=== PATIENT | female | born 1975 | race Caucasian/White ===

== ENCOUNTER 2019-11-13 18:48 | Emergency (ER) | payer SELFPAY ==
[~2019-11-13] VITALS: Ht 157.5 cm; Wt 59.0 kg
[2019-11-13] MEDS ORDERED: ONDANSETRON ODT 4 MG TAB.RAPDIS ONE (19:34)
[2019-11-13] MEDS: ONDANSETRON ODT 4 MG TAB.RAPDIS PO ONE ×2 (19:38)
--- NOTE | 2019-11-13 20:10 | RAD ---
Examination: CT HEAD WO CONTRAST History: Reason: HIT HEAD YESTERDAY, DIZZINESS, headache / Spl. Instructions: / History: Comparison/Correlation: None Findings: Axial images of the head were obtained without contrast. The ventricles are normal size. Normal cohen-white matter differentiation. No intracranial hemorrhage, midline shift, or mass effect. The patient is mostly edentulous. No depressed fracture. Visualized paranasal sinuses and mastoid air cells are unremarkable. Impression: No suspicious process. Electronically signed by: All Frances MD (11/13/2019 8:07 PM) [facility]
--- NOTE | 2019-11-13 20:13 | PHYS DOC ---
Past History Past Medical History: No Pertinent History, Other Additional Past Medical Histor: INSOMNIA, POLYP IN UTERUS Past Surgical History: Tubal ligation, Other Additional Past Surgical Histo: CANALOPLASTY, ABLASION Alcohol Use: None Drug Use: None Adult General Chief Complaint Chief Complaint: NAUSEA/VOMITING/DIARRHEA HPI HPI Patient is a 44-year-old female who presents with dizziness. Onset was yesterday morning at 4 AM, patient was attempting to shrimp picker her cat in the middle of the night and hit her right anterior forehead on dresser. Ever since this, patient reports dull headache. Associated symptoms include nausea and dizziness whenever she changes head positions and changes body position. Nothing known makes better, body movements previously described make worse. Patient denies this is the worst headache of her life, no ripping or tearing sensations at this time. She is not on any blood thinners. She has no diagnosed history of BPPV, no recent URI, no fever, no history of CVA or other neurologic abnormalities. Ongoing symptomology today prompted her to visit our ER for evaluation Review of Systems Review of Systems Fourteen body systems of review of systems have been reviewed. See HPI for pertinent positives and negative responses, other jones all other systems are negative, non-pertinent or non-contributory Current Medications Current Medications Current Medications Medications (Trade) Dose Ordered Sig/Vinh Start Time Stop Time Status Last Admin Dose Admin Ondansetron HCl (Zofran Odt) 4 mg 1X ONCE 11/13/19 19:45 11/13/19 19:46 DC Allergies Allergies Allergies Coded Allergies Type Severity Reaction Last Updated Verified Penicillins Allergy Intermediate sob 04/21/16 Yes ampicillin Allergy Intermediate sob 04/21/16 Yes Physical Exam Physical Exam Constitutional: Pt is oriented to person, place, and time. Pt appears well-developed and well-nourished. HENT: Head: Normocephalic and atraumatic. Mouth/Throat: Oropharynx is clear and moist. No hematomas or lacerations or abrasions to face or scalp OP clear, no blood, no malocclusion, dentition intact Nares clear, no nasal septal hematoma TMs clear, no hemotympanum Midface stable Eyes: Conjunctivae and EOM are normal. Pupils are equal, round, and reactive to light. Neck: C-spine midline nontender, no step-offs Cardiovascular: Normal rate, regular rhythm and normal heart sounds. Pulmonary/Chest: Effort normal and breath sounds normal. No respiratory distress. No wheezes. CTA bilaterally Abdominal: Soft. Bowel sounds are normal. Pt exhibits no distension. There is no tenderness. Musculoskeletal: No bony tenderness to extremities, no deformities, full ROM extremities Chest wall stable Pelvis stable and non-tender No vertebral TTP and spine without stepoffs Neurological: Pt is alert and oriented to person, place, and time, negative hints exam, spinning type dizziness reproducible with rotational head movements to left and right in addition to body positional changes Moving all extremities willfully, able to wiggle all fingers and toes Alert and oriented x 3 Sensation grossly intact Skin: Skin is warm and dry. No abrasions, no lacerations Psychiatric: Behavior is appropriate for situation Nursing note and vitals reviewed. Current Patient Data Vital Signs Vital Signs Date Time Temp Pulse Resp B/P (MAP) Pulse Ox O2 Delivery O2 Flow Rate FiO2 11/13/19 19:00 98.2 61 18 155/93 (113) 97 Room Air Lab Results Laboratory Tests Test 11/13/19 19:33 11/13/19 19:34 Glucose (Fingerstick) 92 mg/dL (70-99) POC Urine HCG, Qualitative hcg negative (Negative) EKG EKG EKG ordered and interpreted by myself at 2055 hrs. as sinus rhythm at 59 bpm, unremarkable intervals, no axis deviation, no obvious fascicular blocks, no acute ischemic findings, no STEMI Radiology/Procedures Radiology/Procedures PROCEDURE: CT HEAD WO CONTRAST Examination: CT HEAD WO CONTRAST History: Reason: HIT HEAD YESTERDAY, DIZZINESS, headache / Spl. Instructions: / History: Comparison/Correlation: None Findings: Axial images of the head were obtained without contrast. The ventricles are normal size. Normal cohen-white matter differentiation. No intracranial hemorrhage, midline shift, or mass effect. The patient is mostly edentulous. No depressed fracture. Visualized paranasal sinuses and mastoid air cells are unremarkable. Impression: No suspicious process. Electronically signed by: All Frances MD (11/13/2019 8:07 PM) [facility] Course & Med Decision Making Course & Med Decision Making Grossly well-appearing and ambulatory patient seen on immediate ER arrival ABCs non-concerning Comprehensive history and physical exam obtained, given extent of injury and presenting symptoms joint decision to pursue CT head imaging performed. This was ultimately negative [id number]-[id number] glucose unremarkable, EKG showed no obvious defects A total of 8 mg Zofran, 10 mg Reglan, 25 mg meclizine, and 15 mg IM Toradol administered stirred with symptomatic relief in patient's dizziness, dull headache, and nausea I discussed utility in further diagnostic work-up including laboratory analysis; however, given that patient had near complete symptomatic improvement and was ambulating without difficulty at time of discharge, she felt safe to go home and follow-up with PCP I disclose this might be an acute presentation of more concerning pathology; however, this is less likely given grossly benign physical examinations without any hard neurological findings or deficits Patient has good access to PCP and can follow-up within upcoming 48 to 72 hours. I discussed most likely diagnosis of BPPV, its pathophysiology and treatment. Patient to follow-up with primary care physician and ENT as needed Strict return precautions were discussed with good understanding by patient, all questions and concerns addressed prior to ER departure in stable condition with new prescription for Reglan for nausea and meclizine for BPPV Star Disclaimer Dragon Disclaimer This electronic medical record was generated, in whole or in part, using a voice recognition dictation system. Departure Departure: Impression: Primary Impression: Dizziness Disposition: 01 HOME/RESIDENCE PRIOR TO ADM Condition: STABLE Referrals: PCP,NO (PCP) Patient Instructions: Benign Positional Vertigo, Vertigo Scripts Metoclopramide Hcl (REGLAN) 10 Mg Tablet 1 TAB PO TID for nausea for 30 Days, #30 TAB 0 Refills before food and bedtime Prov: ETHAN DOWNING DO 11/13/19 Meclizine Hcl (MECLIZINE HCL) 25 Mg Tablet 1 TAB PO PRN TID for VERTIGO, #30 TAB Prov: ETHAN DOWNING DO 11/13/19 Justification of Admission: Justification of Admission: Justification of Admission Dx: N/A ETHAN DOWNING DO Nov 13, 2019 20:13
[2019-11-13] MEDS: MECLIZINE 12.5 MG TABLET. PO ONE (20:47)
[2019-11-13 21:28] VITALS: BP 151/91
[2019-11-13] MEDS ORDERED: METO10TA81 PO (21:29)
[2019-11-13] MEDS ORDERED: MECL-75 PO (21:29)
[2019-11-13] MEDS: METOCLOPRAMIDE 10 MG TABLET PO ONE (21:36)
[2019-11-13] MEDS: KETOROLAC 30 MG/ML VIAL. IM ONE (21:36)
--- NOTE | 2019-11-14 03:10 | EKG ---
[address] [address] Test Date: 2019-11-13 Test Time: 20:42:10 Pat Name: MARGUERITE CRUZ Department: Room: Gender: F [employer] Equipment Operator: : 1975 Requested By: ETHAN DOWNING Order Number: [id number] Reading MD: Measurements Intervals [place] Rate: 59 P: 45 TX: 114 QRS: 48 QRSD: 80 T: 19 QT: 422 QTc: 418 Interpretive Statements SINUS RHYTHM NORMAL ECG RI6.02 No previous ECG available for comparison
== END 2019-11-13 21:40 | disposition home or self-care (01) ==
LOC: ER 18:48
DX: R42 Dizziness and giddiness (principal); R51 Headache; R11.0 Nausea; Z98.51 Tubal ligation status; Z88.0 Allergy status to penicillin; Z88.1 Allergy status to other antibiotic agents
CPT/HCPCS: 70450; 81025; 82947; 93005; 96372; 99285; J1885; J8597; Q0162